=== PATIENT | female | born 1985 | race Caucasian/White ===

== ENCOUNTER 2024-12-25 00:53 | Emergency (ER) | payer BC ==
[2024-12-25] MEDS ORDERED: Droperidol 5 MG/2 ML VIAL ONE (02:39)
[2024-12-25 02:51] LABS: #Basophils 0.07 10x3/uL (0.0-0.2); #Eosinophils 0.15 10x3/uL (0.0-0.5); #Monocytes 1.15 10x3/uL (0.0-1.1); #Neutrophils 8.98 10x3/uL (1.5-8.4); %Basophils 0.5 % (0.0-2.0); %Eosinophils 1.1 % (0.0-6.0); %Lymphocytes 21.3 % (18.0-47.0); %Monocytes 8.7 % (0.0-10.0); %Neutrophils 68.1 % (40.0-75.0); Hematocrit 41.9 % (34.9-44.5); Hemoglobin 14.2 g/dL (12.0-15.5); Mean Corpuscular Hemoglobin 29.2 pg (27.0-33.0); Mean Corpuscular Volume 86.0 fL (81.6-98.3); Platelet Count 355 10x3/uL (150-450); Red Blood Cell (RBC) Count 4.87 10x6/uL (3.90-5.03); White Blood Cell (WBC) Count 13.20 10x3/uL (3.5-10.5)
[2024-12-25 03:04] LABS: BHCG - Serum Negative (NEGATIVE); Pregs Control Background? CLEAR/WHITE (CLR/WHITE); Pregs Control Bar Appear? YES (CONTROL BAR)
[2024-12-25 03:09] LABS: ALT (SGPT) 15 U/L (Less than 34); AST (SGOT) 24 U/L (11-34); Albumin 4.2 g/dL (3.1-4.5); Alkaline Phosphatase 55 U/L (40-110); Anion Gap 12 mmol/L (10-20); BUN (Urea Nitrogen) 13 mg/dL (7.0-18.7); Bilirubin, Total 0.6 mg/dL (0.3-1.2); Calc. Creatinine Clearance 0 mL/min (70-130); Calcium 8.9 mg/dL (7.8-10.44); Carbon Dioxide 23 mmol/L (22-29); Chloride 107 mmol/L (98-107); Globulin 3.5 g/dL (2.4-3.5); Glucose 78 mg/dL (70-105); Lipase 241 U/L (8-78); Potassium 4.0 mmol/L (3.5-5.1); Sodium 138 mmol/L (136-145)
[2024-12-25 03:12] LABS: Troponin I Less than 0.010 ng/mL (< 0.028)
[2024-12-25 03:25] LABS: Glucose, Urine (Dipstick) Normal (Negative); Leukocyte Negative (Negative); Protein, Urine (Dipstick) Negative (Neg-Trace); Specific Gravity, Urine 1.010 (1.005-1.030)
[2024-12-25 03:36] LABS: Bacteria/HPF 1+ HPF (None Seen); CAUTI Indications for Culture Pelvic or flank pain; RBC/HPF 0-3 HPF (0-3); Urine Culture Reflex No No; WBC/HPF 0-3 HPF (0-3)
== END 2024-12-25 03:22 | disposition home or self-care (01) ==
LOC: CSHERS 00:53
DX: K85.90 Acute pancreatitis without necrosis or infection, unspecified (principal)
CPT/HCPCS: 80053; 81001; 83605; 83690; 84484; 84703; 85025; 96374; J1790